=== PATIENT | male | born 1945 | race Caucasian/White ===

== ENCOUNTER → 2023-08-29 11:18 | Outpatient (REF) | payer MEDICARE, OTHER, SELFPAY | LOC: RAD 11:18 | PROVIDERS: ATTENDING PHYSICIAN Nurse Practitioner Family | DX: R05.1 Acute cough (principal) | CPT/HCPCS: 71046 ==

== ENCOUNTER → 2024-07-03 12:40 | Outpatient (REF) | payer MEDICARE, OTHER, SELFPAY ==
--- NOTE | 2024-07-03 13:53 | CARDSERVLU ---
Echocardiogram with Lumason completed after protocol screening completed. Allergies verified.
Patent IV site: Right forearm 22 G PC
IV site flushed with 0.9% NaCl pre and post administration.
Diluted bolus method utilized to enhance visualization of ventricular mena.
Total volume given: _3.5___ mL
Patient tolerated all procedures well without complications.
Heplock D/C ed at 1350,site clear, no redness, no edema. Pressure held for few minutes as pt on anticoagulants. No bleeding, 2x2 applied and taped. Pt offers no complaints.
== END ==
LOC: RCS 12:40
PROVIDERS: ATTENDING PHYSICIAN Internal Medicine Interventional Cardiology; FAMILY PHYSICIAN Family Medicine
DX: I25.5 Ischemic cardiomyopathy (principal)
CPT/HCPCS: 93306; Q9950

== ENCOUNTER 2024-09-20 10:02 | Day surgery (SDC) | payer MEDICARE, OTHER, SELFPAY ==
[2024-09-20 10:34] VITALS: BMI 41.0
[2024-09-20 10:34] LABS: Hemoglobin 16.5 g/dL (13.0-18.0); Mean Corpuscular Hgb 33.7 pg (27.0-31.0); Mean Platelet Volume 9.5 fL (7.4-10.4); Platelet Count 185 10^3/uL (130-400); Red Cell Dist. Width 13.8 % (11.5-14.5); White Blood Cell Count 8.4 10^3/uL (4.8-10.8)
[2024-09-20 10:52] VITALS: BP 122/63
[2024-09-20 11:14] LABS: Blood Urea Nitrogen 21 mg/dl (9-20); Carbon Dioxide 28 mmol/L (22-30); Chloride 106 mmol/L (98-107); Estimated Creatinine Clearance 85 ml/min; Glucose 137 mg/dl (70-99); Potassium 5.1 mmol/L (3.5-5.1); Sodium 144 mmol/L (135-145); eGFR > 60.00
--- NOTE | 2024-09-20 12:49 | W.ICD.CONTRA ---
Post ICD/PRICING COORDINATOR-D
-
History of MT?: Yes
LV Function
Left ventricular function study result?: Ejection Fraction </= 35%
ACEI/ARB/ARNI
Patient already on ACEI/ARB/ARNI: Yes
Beta-Avinash
Patient already on Beta Avinash: Yes
--- NOTE | 2024-09-20 15:07 | ITS.CL.ICD ---
Data Support Specialist - ICD
Implantable Cardioverter Defibrillator
Procedure Report:
Date of Procedure: September 20, 2024
Patient : 1945
Procedures: Dual-chamber ICD generator change
Indication: Generator DESIRE
Implants:
Pulse Generator: [employer]; Model# D121; Serial# [id number] implanted today
Atrial Lead: [employer]: Model# 4469; Serial# [id number] implanted 2006
Right Ventricular Lead: [employer]; Model# 0184; Serial# [id number] implanted 2006
Explants:
[employer] generator model E163 serial #[id number] implanted 2013
Technique: The patient was prepped and draped in the usual fashion. Local anesthetic was applied to the left prepectoral subcutaneous tissue. A 4 inch incision was made at the chronic incision site. The old device was identified and the chronic
leads were from the chronic generator. The chronic generator was removed from the field. The leads were appropriately attached to the new device. The pocket was irrigated with antibiotic solution. The device and leads were placed in the
pocket. The incision was closed with absorbable sutures. The estimated blood loss was minimal. There were no complications. Device based testing was performed as described below. IV contrast total: 0 cc.
System Analysis:
RA lead: P: 1.1 mV; Threshold: 0.7 V @ 0.5 ms; Impedance: 486 ohms.
RV lead: R: 18.5 mV; Threshold: 0.9 V @ 0.5 ms; Impedance: 445 ohms.
Final Programming: Tachy: VT/VF:188; Eris: DDDR 60-120.
Conclusion: Uncomplicated dual-chamber ICD generator change
Recommendation: Routine post ICD generator site care
cc: Dr. Man Edwards
[2024-09-20 15:09] VITALS: BP 128/73
[2024-09-20 15:14] VITALS: BP 113/58
[2024-09-20 15:24] VITALS: BP 112/58
[2024-09-20 15:39] VITALS: BP 120/52
[2024-09-20 15:55] VITALS: BP 107/61
== END 2024-09-20 16:05 | disposition home or self-care (01) ==
LOC: CATH 10:02
PROVIDERS: ATTENDING PHYSICIAN Internal Medicine Cardiovascular Disease; FAMILY PHYSICIAN Family Medicine; OTHER PHYSICIAN Internal Medicine Interventional Cardiology
DX: Z45.02 Encounter for adjustment and management of automatic implantable cardiac defibrillator (principal); I50.22 Chronic systolic (congestive) heart failure; J44.9 Chronic obstructive pulmonary disease, unspecified; I48.0 Paroxysmal atrial fibrillation; E78.2 Mixed hyperlipidemia; I25.5 Ischemic cardiomyopathy; Z79.82 Long term (current) use of aspirin; Z79.899 Other long term (current) drug therapy; Z79.01 Long term (current) use of anticoagulants; I25.2 Old myocardial infarction; Z95.1 Presence of aortocoronary bypass graft
CPT/HCPCS: 33263; 80048; 85027; C1721

== ENCOUNTER → 2024-11-13 08:17 | Outpatient (REF) | payer MEDICARE, OTHER, SELFPAY | LOC: RSP 08:17 | PROVIDERS: ATTENDING PHYSICIAN Internal Medicine Interventional Cardiology; FAMILY PHYSICIAN Family Medicine | DX: R06.2 Wheezing (principal); R06.02 Shortness of breath | CPT/HCPCS: 94727; 94729; 36415; 88738; 94010 ==

== ENCOUNTER 2024-11-21 06:09 | Day surgery (SDC) | payer MEDICARE, OTHER, SELFPAY ==
[2024-11-21 07:58] VITALS: BMI 40.0
[2024-11-21 08:10] VITALS: BMI 40.0
[2024-11-21 08:11] VITALS: BP 154/79
[2024-11-21 11:00] VITALS: BP 110/68
[2024-11-21 11:15] VITALS: BP 109/60
[2024-11-21 11:30] VITALS: BP 113/69
== END 2024-11-21 11:55 | disposition home or self-care (01) ==
LOC: GI 06:09
PROVIDERS: ATTENDING PHYSICIAN Student in an Organized Health Care Education/Training Program
DX: D12.1 Benign neoplasm of appendix (principal); D12.3 Benign neoplasm of transverse colon; D12.4 Benign neoplasm of descending colon; D17.5 Benign lipomatous neoplasm of intra-abdominal organs; K57.30 Diverticulosis of large intestine without perforation or abscess without bleeding; K63.89 Other specified diseases of intestine; D12.8 Benign neoplasm of rectum; Q43.8 Other specified congenital malformations of intestine; K64.0 First degree hemorrhoids; R19.5 Other fecal abnormalities; K31.A0 Gastric intestinal metaplasia, unspecified; K29.70 Gastritis, unspecified, without bleeding; K25.9 Gastric ulcer, unspecified as acute or chronic, without hemorrhage or perforation; K31.89 Other diseases of stomach and duodenum; Z80.0 Family history of malignant neoplasm of digestive organs
CPT/HCPCS: 45385; 45380; 88305; 88342

== ENCOUNTER → 2025-01-29 10:27 | Outpatient (REF) | payer MEDICARE, OTHER, SELFPAY ==
[2025-01-29 11:19] LABS: Hematocrit 48.3 % (39.0-52.0); Hemoglobin 16.7 g/dL (13.0-18.0); Mean Corp Hgb Conc. 34.6 g/dL (33.0-37.0); Mean Corpuscular Volume 92.5 fL (80.0-94.0); Nucleated Red Blood Cells % 0 % (-); Platelet Count 223 10^3/uL (130-400); Red Cell Dist. Width 15.2 % (11.5-14.5)
[2025-01-29 11:29] LABS: INR 2.18; PT 24.3 Sec (11.4-14.6)
== END ==
LOC: SDSPAT 10:27
PROVIDERS: ATTENDING PHYSICIAN Internal Medicine Cardiovascular Disease; FAMILY PHYSICIAN Family Medicine; OTHER PHYSICIAN Internal Medicine Interventional Cardiology
DX: I47.20 Ventricular tachycardia, unspecified (principal)
CPT/HCPCS: 36415; 85025; 85610; 86850; 86900; 86901

== ENCOUNTER 2025-01-31 08:26 | Day surgery (SDC) | payer MEDICARE, OTHER, SELFPAY ==
[2025-01-29 10:42] VITALS: BMI 37.5
[2025-01-31] VITALS (42 sets, daily range): BP systolic 74–134; BP diastolic 55–89; BMI 36.8
[2025-01-31 10:11] LABS: ALT (SGPT) 39 U/L (0-50); AST (SGOT) 25 U/L (17-59); Albumin 3.8 g/dl (3.5-5.0); Alkaline Phosphatase 61 U/L (38-126); Blood Urea Nitrogen 18 mg/dl (9-20); Calcium 9.3 mg/dl (8.4-10.2); Carbon Dioxide 29 mmol/L (22-30); Chloride 102 mmol/L (98-107); Estimated Creatinine Clearance 72 ml/min; Glucose 111 mg/dl (70-99); Potassium 4.0 mmol/L (3.5-5.1); Sodium 137 mmol/L (135-145); Total Protein 6.2 g/dl (6.3-8.2); eGFR > 60.00
--- NOTE | 2025-01-31 10:19 | PTCARENOTE ---
[place] rep at bedside
[2025-01-31 14:25] LABS: ACT-LR - POC 316 Seconds (116-155)
[2025-01-31 14:43] LABS: ACT-LR - POC 356 Seconds (116-155)
[2025-01-31 15:17] LABS: ACT-LR - POC 340 Seconds (116-155)
[2025-01-31 15:41] LABS: ACT-LR - POC 343 Seconds (116-155)
[2025-01-31 16:11] LABS: ACT-LR - POC 361 Seconds (116-155)
[2025-01-31 16:47] LABS: ACT-LR - POC 339 Seconds (116-155)
[2025-01-31 17:17] LABS: ACT-LR - POC 166 Seconds (116-155)
--- NOTE | 2025-01-31 17:42 | ITS.CL.ABL ---
Weight Count Operator - Ablation
Ablation
Procedure Report:
ELECTROPHYSIOLOGY ABLATION STUDY
DATE:: January 31, 2025�������������������������REFERRING: Dr. Man Edwards
INDICATION: Paroxysmal supraventricular tachycardia in the form of atrial fibrillation.��Recent 28 ICD shocks for 3 cycle lengths of VT to 80 ms, 330 ms, 415 ms, the shorter cycle lengths were not tolerated hemodynamically. 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
going to [facility] when he had the shocks and was placed on IV amiodarone and [place] the [place] He went to [facility] where they placed him on amiodarone and mexiletine and discharged him in stable condition. He had 12.8 years of battery life
after recent generator change. He presents today after symptoms from his amiodarone mexiletine mainly tremor with the amiodarone for VT ablation.
HISTORY: See H and P.��As above
ANTIARRHYTHMIC DRUG: Amiodarone 400 mg daily, mexiletine 200 mg every 8
PRE-PROCEDURE MARK: No intracardiac thrombus on intracardiac ultrasound. Ejection fraction 15%.
PRESENTING RHYTHM: Sinus rhythm with atrial pacing
'TIME-OUT':��called and confirmed.
SEDATION/ANESTHESIA:��provided via the anesthesia department using general anesthesia (LMA).
INTRAVENOUS/ARTERIAL ACCESS:
Right femoral venous - 8Fr
Left femoral venous - 8 Fr, 6 Fr
Right femoral arterial - 5 Fr
Ultrasound guidance for bilateral femoral vein access was utilized by me to obtain access with demonstration of normal anatomy
CHADS-VASC Score:
PROCEDURE:
See below at the end of the procedure we also performed pulmonary vein isolation with pulsed field ablation�Bren pulse utilizing 66 total lesions for both the A-fib posterior wall isolation and the apical infarct in the left ventricle. We first
proceeded with the ventricular tachycardia ablation. We reprogrammed the patient's VF zone to 185, VT zone to 150, and VT 1 zone to 130 and in the VT 1 zone ATP only. ATP and the other zones with cardioversion. Device was off for procedure and
then turned back on at the end of the procedure and was DDD 50-130 with ICD therapies on. Programming changes were made because of the cycle lengths of VT and also to perform some ATP and slower VT zones.
1. After general anesthesia was established we performed venous and arterial access under ultrasound guidance. A 5 Zimbabwean short sheath in the right femoral artery which was eventually upgraded to a 9 Zimbabwean sheath for retrograde aortic approach.
Under intracardiac ultrasound the patient's aortic valve was relatively normal the majority of the ablation with radiofrequency energy was performed retrograde aortic. Venous access was established and a quadripolar catheters placed the RV apex and
intracardiac ultrasound was utilized demonstrating ejection fraction 10 to 15% with a large anteroapical infarct and aneurysm with the basal segments moving relatively well but overall diminished ejection fraction. There was no mitral
regurgitation. Post procedure and there is no pericardial fusion. Post procedure. Intracardiac ultrasound was utilized to visualize lesion formation and contact as well as during flower and basket post deliveries with PFA to the ventricle via the
retrograde aortic approach.
After venous access and catheters were established we first performed transseptal puncture with a 10 Zimbabwean Agilis utilizing a Brockenbrough needle and a safe step wire. Transseptal was performed inferior and anterior to improve access to the left
ventricle. We did make a left atrial shell and then proceeded with a grid catheter across the mitral valve into the LV to characterize the electroanatomic voltage abnormalities late potentials and isochronal activation. A large anterior apical
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 We then brought the tactic cath catheter via the transseptal puncture into the LV although contact and reach
for the large aneurysm was difficult and we elected to change to a retrograde aortic approach for ablation with radiofrequency energy. Thus we upgraded the 5 Zimbabwean short sheath to a 9 Zimbabwean long sheath in the right femoral artery and we used a
retrograde aortic approach with the 4 mm tactic cath and utilizing 30 W 42 degrees and 15 to 30-second lesions for an lesion index of 5.0 target and 10 to 20 g of force target and for 30 minutes of radiofrequency energy delivered to the apex and
border zones of the anterior apical infarct. All latent fractionated signal was targeted within the infarct and we also targeted I DOMINGUEZ areas. After initial dense ablation with radiofrequency energy we performed single double and triple
extrastimuli at 600 ms drivetrain's and the patient was noninducible for ventricular tachycardia. At the end the procedure we also targeted the patient's atrial fibrillation as we were already transseptal and after pulmonary vein isolation was left
atrial posterior wall isolation with the Bren pulse catheter we then turned our attention to bringing this across the mitral valve over a wire under direct intracardiac ultrasound visualization and performed 12 lesions in basket and flower pose in
the area of the dense apical infarct rendering the central portion and surrounding areas electrically silent.
2. The intracardiac ultrasound catheter was positioned in the RA to identify the FO for targeting of transseptal puncture, assist��in identification of the pulmonary vein ostia, monitoring pre and post ablation pulmonary vein flow velocities,
monitoring for 'bubble' formation during RF application as a sign of thermal injury,��and to monitor for pericardial effusion during mapping and ablation procedure.���Left atrial size, LV ejection fraction, and pulmonary vein flows were monitored
pre and post ablation procedure. The other valves were inspected and found to be free of significant regurgitation or stenosis.
3.��Half of the calculated heparin bolus was administered prior to the first transeptal puncture.��Transseptal puncture was performed to diagnose RA and LA pressure so that safety of LA mapping and ablation could be further assessed, and to access
the left atrium and pulmonary veins for mapping and ablation.��This entailed advancing an 10 Zimbabwean Agilis with dilator into the superior vena cava and withdrawing both (monitoring intracardiac ultrasound, fluoroscopy and tip pressure) with the tip
oriented toward the atrial septum and at the end of the procedure we upgraded the 10 Zimbabwean Agilis to the 17 Zimbabwean Agilis to perform pulmonary vein isolation with the Bren pulse.��The fossa ovalis was engaged (indicated by sudden displacement of
the sheath tip as well as tenting of the fossa seen on intracardiac ultrasound).��Left atrial access required a pass with the Brockenbrough needle extended.��Left atrial catheter position was confirmed by pressure monitoring (RA mean pressure 4 mm
Hg and LA mean presure 12 mm Hg), LA saturation (99%),��as well as fluoroscopy.��The sheath was advanced over the dilator and positioned in the left atrium.��This procedure was repeated for the Agilis sheath.��The remainder of the calculated heparin
bolus was administered and heparin was
infused to maintain ACT at 300 -350 seconds throughout the case.
4.��RA pacing was performed via the proximal decapolar poles and LA pacing was performed via the distal decapolr poles.
5. A quadrapolar catheter was first positioned at the His position for His Bundle recording which was tagged via the 3-D Navex sytem, and then passed to the RVA for RV pacing and recording.
6. The Penta spline and grid were placed in each of the LIPV, LSPV, RSPV and the RIPV.��
7.��Next, a 3-D map was created using Navex.���A 3-D reconstructed CT image was compared to the 3-D Navex map to assist in anatomic interpretation, mapping and ablation.��The CT image and the NavX image were fused.
8. A total of 66 lesions were given with 54 of these in the left atrium. All of in basket pose to each of the 4 pulmonary veins rendering entrance and exit block and flower post to the roof posterior wall and floor rendering the roof posterior
wall for the left atrial electrically silent. Then as above we performed 12 lesions in the apical infarct via the transseptal approach in flower and basket post rendering the central portion of the apical infarct electrically silent.
9. The other procedure we turned the patient's ICD therapies back on with reprogramming as above and the patient had protamine given. Venous access sites were given [id number] stitch and 30 minutes of manual pressure were given at the bedside
for the right femoral arterial sheath and a FemoStop will be placed from 1 hour over the site.
TOTAL FLOURO TIME: 41 minutes
TOTAL RF DURATION: 30 minutes
REVERSAL OF HEPARIN: 35 mg of protamine, slow IV administration
COMPLICATIONS:
None
Intracardiac US shows no pericardial effusion post ablation.
SUMMARY:��
Complex left atrial mapping and ablation.
Substrate modification of the patient's anteroapical infarct and aneurysm with radiofrequency energy x 29 minutes via the retrograde aortic approach and complementary lesions given in the central apical infarct with the Bren pulse PFA catheter in
flower and basket pose. We also performed pulmonary vein isolation and left atrial posterior wall isolation with the Bren pulse catheter.
RECOMMENDATIONS:
1. Admit to monitored bed.
2. Resume anticoagulation this evening at 1130 with 6 hours after sheath pull as long as the groins are hemostatic
3.��Will place a FemoStop to the right femoral artery x 2 hours
4.��Amiodarone 200 mg at discharge and will give twice daily for now. Will continue mexiletine 200 mg Q8 for period of 1 to 3 months. I would wean the amiodarone to off over the next 1 to 3 months if he has clinical stability given his tremor
related to amiodarone.
Copy to: Dr. Man Edwards
[2025-01-31 18:21] LABS: Glucose - Point of Care 130 mg/dl (70-99)
--- NOTE | 2025-01-31 19:20 | PTCARENOTE ---
Received patient from the PACU at 1838. Patient lying flat in bed, alert and oriented. Dressing left groin is dry and intact. Fem stop in place right groin, area is tender with a soft ecchymotic area proximal to fem stop which is unchanged when
assessed with electroplating laborer nurse. Figure of 8 dressing is dry and intact on the right groin. Bilateral DP pulses are palpable. Reinforced post cath restrictions, assisted patient with the urinal and he voided 200ml. The patient's is at the bedside
and would like to stay for the night. Call zaidi in reach.
[2025-01-31] MEDS: COREG PO (20:10)
[2025-01-31] MEDS: ENTRESTO 24 MG/26 MG PO (20:10)
[2025-01-31 20:25] LABS: Hematocrit 44.5 % (39.0-52.0); Hemoglobin 15.2 g/dL (13.0-18.0)
[2025-01-31] MEDS: PACERONE 200 MG PO (21:39)
[2025-01-31] MEDS: MEXITIL 200 MG PO (23:18)
[2025-02-01] VITALS (18 sets, daily range): BP systolic 74–113; BP diastolic 45–95; BMI 38.1
--- NOTE | 2025-02-01 00:06 | W.PN.UPDATE ---
Update Note
Progress Note Update
late note entry:
-came in to eval pt's R groin hematoma after femstop was taken off @ 8 pm. Pt is noted to have good amount of bruising with at least moderate hematoma, which is tracking to the inner thigh. BP 93/64, hr 89 sinus. Pt denied any dizziness, back or
abdominal pain. Several nurses held manual pressure for 20 min over groin and thigh area and hematoma got significantly softer. Gave IVF and BP improved 106/84. Checked Hg 15.2 (16.7 preop). Pt has DP pulses b/l by Doppler. He remained
hemodynamically stable, no significant tachycardia. Held pm BP meds d/t hypotension. Held pm Xarelto d/t hematoma. Will continue to monitor
-discussed with Dr. Arshad
--- NOTE | 2025-02-01 00:48 | PTCARENOTE ---
Patient received at change of shift resting in the bed. Right and left groin sites assessed at change of shift with douglas RN. Left groin with figure of eight sutures present, pedal pulse palpable. Right groin site with FemStop present, some
oozing noted. Ecchymosis noted. Surrounding area soft to palpation. Pedal pulse palpable. SR with first degree AVB on telemetry. Oxygen saturation 95-98% on 2L NC.
Femstop removed as ordered two hours after placement at approximately 2000. The right groin site appeared more ecchymotic than previously noted. Upon palpation a hematoma was noted. Approximately 10x6 in size. Pressure was applied by two RNs. The
patient was also noted to be hypotensive with a SBP in the 80s. Denied feeling lightheaded or dizzy. Only endorsed chronic back pain at this time. CT surgery YUNG Forrester came to the bedside to evaluate the patient. Stat H&H drawn and sent. Manual
pressure was held for 20-25 minutes. The sandbag was applied for one hour following manual pressure being held. Pedal pulses obtainable with doppler. Per YUNG Forrester Coreg and Entresto were to be held. PO amiodarone was given as ordered. Left
femoral figure of eight suture removed as ordered at 2130, gauze and tegaderm applied.
Xarelto scheduled to be given at 2330 on 01/31 was held per YUNG Forrester due to the right groin oozing and the hematoma. Right femoral figure of eight suture removed at 2345 on 01/[address] surgery YUNG. Gauze and tegaderm applied.
Bilateral pedal pulses continue to be obtainable with doppler. Right groin remains ecchymotic. Surrounding area soft to palpation. The patient is voiding appropriately with a urinal. Maintaining bedrest, HOB, and activity restrictions. SR on
telemetry. Oxygen saturation 94-95% on room air. The patient denies feeling lightheaded or dizzy. Denies N/V. Plan of care discussed. Call zaidi within reach. Care ongoing.
[2025-02-01 03:28] LABS: Hematocrit 38.7 % (39.0-52.0); Hemoglobin 13.2 g/dL (13.0-18.0); Mean Corp Hgb Conc. 34.1 g/dL (33.0-37.0); Mean Corpuscular Volume 94.6 fL (80.0-94.0); Platelet Count 151 10^3/uL (130-400); Red Cell Dist. Width 15.9 % (11.5-14.5)
[2025-02-01 04:03] LABS: Blood Urea Nitrogen 20 mg/dl (9-20); Calcium 8.2 mg/dl (8.4-10.2); Carbon Dioxide 22 mmol/L (22-30); Chloride 106 mmol/L (98-107); Estimated Creatinine Clearance 90 ml/min; Glucose 151 mg/dl (70-99); Magnesium 1.8 mg/dl (1.6-2.3); Potassium 4.8 mmol/L (3.5-5.1); Sodium 132 mmol/L (135-145); eGFR > 60.00
--- NOTE | 2025-02-01 08:15 | PTCARENOTE ---
Patient resting in bed this morning, at the bedside. Patient assessed with Dr. Jacobsen. Dressing left groin is dry and intact. Right groin dressing with old drainage is intact, large area of black ecchymosis from the right hip, upper thigh and
inner groin. Area is soft with palpable DP pulses. Patient encouraged to be oob. Call zaidi in reach, ordering breakfast.
[2025-02-01] MEDS: ASPIR LOW (ENTERIC COATED) 81 MG PO (08:34)
[2025-02-01] MEDS: LASIX 40 MG PO (08:34)
[2025-02-01] MEDS: PACERONE 200 MG PO (08:35)
[2025-02-01] MEDS: MEXITIL 200 MG PO (08:35)
[2025-02-01] MEDS: FLUSH (NSS) 1 FLUSH IV (08:36)
[2025-02-01] MEDS: ENTRESTO 24 MG/26 MG 1 TAB PO (08:36)
[2025-02-01] MEDS: ALDACTONE 25 MG PO (08:36)
[2025-02-01] MEDS: COREG 3.125 MG PO (08:36)
--- NOTE | 2025-02-01 09:24 | W.PN.CARDCBS ---
Addendum entered and electronically signed by Cesar Jacobsen MD 02/01/25 12:56:
Discussed asymptomatic hypotension with Yenni LOMELI-we will plan groin ultrasound to rule out any structural issues in the right groin otherwise appears asymptomatic and could go home later if ultrasound rules out PSA or fistula.
Addendum entered and electronically signed by Cesar Jacobsen MD 02/01/25 12:38:
Patient seen and examined
Right groin hematoma as noted.
intermittent hypotension which is asymptomatic particularly during groin manipulation-?vagal
Hgb relatively stable
Xarelto held last evening, planning dose today
No VT overnight
exam as noted
Impression:
Paroxysmal atrial fibrillation
VT with recent 28 ICD shocks
post VT and PVI ablation 01/31/25
post op groin HT
CAD/CABG 1991
Amiodarone induced tremor
BiV ICD with recent generator change 08/2024
HTN
HLD
Chronic HFrEF 15% intraprocedurally
COPD
Plan:
this am there is significant ecchymosis but site is soft, non tender with mild serosanguineous drainage on dressing
Will resume Xarelto this am
Will redress and reassess groin 4 hours after Xarelto given
Continue Amiodarone 200mg daily, will try to wean off over the next 1-3 mo
Continue mexiletine [id number]
HF - entresto, spironolactone, farxiga, carvedilol
Activity restrictions reviewed
f/u Jacobsen in 4-6 weeks
then continue cardiac care with Dr. Edwards
home later this afternoon if groin stable after Xarelto given.
Original Note:
Today's Communication / Plan
-
post VT and Afib ablation
groin HT post procedure
resume Xarelto this am and monitor groin for 4 hours
continue amio and mexiletine
f/u Jacobsen in 4-6 weeks
Impression / Plan
-
PCP: Mariposa Salmeron DO
CDY: Man Edwards MD
79 yo male with paroxysmal supraventricular tachycardia in the form of atrial fibrillation.��He had recently 28 ICD shocks for 3 cycle lengths of VT to 80 ms, 330 ms, 415 ms, the shorter cycle lengths were not tolerated hemodynamically. He was on a
cruise ship going to [facility] when he had the shocks and was placed on IV amiodarone and [place] the [place] He went to [facility] where they placed him on amiodarone and mexiletine and discharged him in stable condition. He had 12.8 years of
battery life after recent generator change. He presents today after symptoms from his amiodarone mexiletine mainly tremor with the amiodarone for VT ablation.
Impression:
Paroxysmal atrial fibrillation
VT with recent 28 ICD shocks
post VT and PVI ablation 01/31/25
post op groin HT
CAD/CABG 1991
Amiodarone induced tremor
BiV ICD with recent generator change 08/2024
HTN
HLD
Chronic HFrEF 15% intraprocedurally
COPD
Plan:
post ablation feels good
R groin with post op HT, Xarelto and bp meds held d/t hypotension
this am there is significant ecchymosis but site is soft, non tender with mild serosanguineous drainage on dressing
Hbg stable
tele no sig ectopy
Will resume Xarelto this am
Will redress and reassess groin 4 hours after Xarelto given
Continue Amiodarone 200mg daily, will try to wean off over the next 1-3 mo
Continue mexiletine [id number]
HF - entresto, spironolactone, farxiga, carvedilol
Activity restrictions reviewed
f/u Jacobsen in 4-6 weeks
then continue cardiac care with Dr. Edwards
home later this afternoon if groin stable after Xarelto given.
SUMMARY:��
Complex left atrial mapping and ablation.
Substrate modification of the patient's anteroapical infarct and aneurysm with radiofrequency energy x 29 minutes via the retrograde aortic approach and complementary lesions given in the central apical infarct with the Bren pulse PFA catheter in
flower and basket pose. We also performed pulmonary vein isolation and left atrial posterior wall isolation with the Bren pulse catheter.
.
Progress Note - Roofer Metal
Subjective
Date of Service: February 01, 2025
denies cp, sob
Objective
Labs:
02/01/25 03:16
02/01/25 03:16
Labs
Hgb 13.2 g/dL (13.0-18.0) 02/01/25 03:16
Hct 38.7 % (39.0-52.0) L 02/01/25 03:16
Plt Count 151 10^3/uL (130-400) D 02/01/25 03:16
Sodium 132 mmol/L (135-145) L 02/01/25 03:16
Potassium 4.8 mmol/L (3.5-5.1) 02/01/25 03:16
BUN 20 mg/dl (9-20) 02/01/25 03:16
Creatinine 0.8 mg/dL (0.7-1.3) 02/01/25 03:16
Glucose 151 mg/dl (70-99) H 02/01/25 03:16
Vital Signs and I&O:
Vital Signs
Temp Pulse Resp BP Pulse Ox
97.6 F 80 18 103/62 94
02/01/25 07:38 02/01/25 07:45 02/01/25 07:38 02/01/25 07:37 02/01/25 07:38
Vital Signs
Temp Pulse Resp BP Pulse Ox
97.6 F 80 18 103/62 94
02/01/25 07:38 02/01/25 07:45 02/01/25 07:38 02/01/25 07:37 02/01/25 07:38
Intake & Output
01/30/25 01/31/25 02/01/25 02/02/25
06:59 06:59 06:59 06:59
Intake Total 1180 / 1180
Output Total 300 / 300
Balance 880 / 880
Physical Exam
Physical Exam
NAD, AOX3
S1, S2, RRR
CTAB, mildly labored
SNTND bsx4
L groin c/d/i no HT, soft
R groin with mod-large area of ecchymomsis into scrotum, soft, moderate serosanguoius drianage on dressing, non tender
[2025-02-01] MEDS: XARELTO 20 MG PO (10:05)
--- NOTE | 2025-02-01 11:09 | CM ---
Chart reviewed. Patient is independent of ADLS, lives with his in a [address], 0 CARLOS, ambulates with a RW and also has a stair glide. Plan is for the patient to return home. CM to follow
--- NOTE | 2025-02-01 12:44 | PTCARENOTE ---
No further drainage right groin, ecchymosis unchanged, right groin is soft. Patient ambulated with rolling walker down the farrell to room 2250 and back. Does appear mildly MILLER but he denies. Groin unchanged when he returned to his room, removed old
dressing. Spot of blood at puncture site, no active bleeding. Hemostasis pad placed with 2x2 and tegaderm. Bp running low, 70's/50's, checked manually which confirmed reading. Patient denies any dizziness or lightheadedness. States he usually
doesn't take his lasix and aldactone until the evening, but that his BP always does run low. TT to Sharee Meredith NP who came and saw the patient, will keep him in bed for now and monitor BP.
--- NOTE | 2025-02-01 15:58 | W.DS.TRANS ---
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
-
Discharge Instructions:
Sleep Apnea Risk High
Discharge Diagnosis/Procedures VT and Afib post ablation
Diet Low Cholesterol,2 Gram Sodium,Restrict fluids to
48 oz
[address] Restrictions No driving for 24 hours
Specialty Instructions Weigh Daily
Instructions:
Stand-Alone Forms: DC Instructions- Cath/EP Lab
Changes to Home Medications: No
Discharge Medications:
DC Medications w/original date entered in [employer]
aspirin 81 mg tablet,delayed release 81 mg PO DAILY Blood clot prevention/tx 02/27/22
carvedilol 12.5 mg tablet 3.125 mg PO BID Blood pressure 02/27/22
cholecalciferol (vitamin D3) 25 mcg (1,000 unit) tablet 25 mcg PO QPM Supplement 02/27/22
furosemide 40 mg tablet 40 mg PO QPM Fluid retention/Swelling 02/27/22
spironolactone 25 mg tablet 25 mg PO QPM Blood pressure 02/27/22
dapagliflozin propanediol 10 mg tablet (Farxiga) 10 mg PO DAILY heart failure #30 tabs 03/02/22
acetaminophen 500 mg tablet 500 mg PO Q6H PRN pain 09/20/24
vitamin E 400 unit tablet 400 unit PO QPM 09/20/24
cyanocobalamin (vitamin B-12) 1,000 mcg tablet (Vitamin B-12) 1,000 mcg PO QPM 01/31/25
sacubitril 24 mg-valsartan 26 mg tablet 1 tab PO BID 01/31/25
amiodarone 100 mg tablet 200 mg (2 x 100 mg) PO DAILY #0 tabs 02/01/25
mexiletine 200 mg capsule 200 mg PO Q8 #90 caps 02/01/25
rivaroxaban 20 mg tablet (Xarelto) 20 mg PO DAILY Blood clot prevention/tx #0 tabs 02/01/25
Home Medication Changes
Pending Results: No
--- NOTE | 2025-02-01 16:03 | PTCARENOTE ---
Ambulated the patient in the farrell and he tolerated sitting oob in the chair. Denies any chest pain, sob or dizziness. SBP remains in the 80's, right groin dressing is dry and intact, ecchymotic area soft with palpable pulses. Seen by Sharee Meredith NP and
is ok for discharge. Reviewed discharge instructions and they state their understanding. Patient discharged home with his .
== END 2025-02-01 16:03 | disposition home or self-care (01) ==
LOC: CATH 08:26
PROVIDERS: Internal Medicine Cardiovascular Disease; Nurse Practitioner Adult Health; ATTENDING PHYSICIAN Internal Medicine Cardiovascular Disease; FAMILY PHYSICIAN Family Medicine; OTHER PHYSICIAN Internal Medicine Interventional Cardiology
DX: I48.0 Paroxysmal atrial fibrillation (principal); I47.10 Supraventricular tachycardia, unspecified; I45.4 Nonspecific intraventricular block; I11.0 Hypertensive heart disease with heart failure; I50.22 Chronic systolic (congestive) heart failure; I25.10 Atherosclerotic heart disease of native coronary artery without angina pectoris; J44.9 Chronic obstructive pulmonary disease, unspecified; E78.5 Hyperlipidemia, unspecified; I44.0 Atrioventricular block, first degree; S30.1XXA Contusion of abdominal wall, initial encounter; Y84.8 Other medical procedures as the cause of abnormal reaction of the patient, or of later complication, without mention of misadventure at the time of the procedure; Z79.01 Long term (current) use of anticoagulants; Z91.048 Other nonmedicinal substance allergy status; Z79.899 Other long term (current) drug therapy; Z95.1 Presence of aortocoronary bypass graft; R25.1 Tremor, unspecified
CPT/HCPCS: C1732; C1730; C1894; C1769; C2630; C1892; C1759; 80048; 80053; 82962; 83735; 85014; 85018; 85027; 85347; 86900; 86901; 93005; 93655; 93656; 93657; 93926; C1733; C1766

== ENCOUNTER 2025-03-29 16:08 | Outpatient (RCR) | payer MEDICARE, OTHER, SELFPAY ==
[2025-03-26 13:51] LABS: Glucose - Point of Care 118 mg/dl (70-99)
[2025-03-26 14:30] LABS: Glucose - Point of Care 101 mg/dl (70-99)
== END 2025-03-29 23:59 | disposition home or self-care (01) ==
LOC: CRHB 16:08
PROVIDERS: ATTENDING PHYSICIAN Internal Medicine Interventional Cardiology
DX: I25.10 Atherosclerotic heart disease of native coronary artery without angina pectoris (principal); I50.22 Chronic systolic (congestive) heart failure
CPT/HCPCS: 82962; G0422; G0423

== ENCOUNTER 2025-04-01 15:29 | Outpatient (RCR) | payer MEDICARE, OTHER, SELFPAY | END 2025-04-01 23:59 | disposition home or self-care (01) | LOC: CRHB 15:29 | PROVIDERS: ATTENDING PHYSICIAN Internal Medicine Interventional Cardiology | DX: I25.10 Atherosclerotic heart disease of native coronary artery without angina pectoris (principal); I50.22 Chronic systolic (congestive) heart failure; I50.20 Unspecified systolic (congestive) heart failure | CPT/HCPCS: G0422 ==